=== PATIENT | male | born 1955 | race Hispanic/Latino ===

== ENCOUNTER 2018-10-02 11:18 | Emergency (ER) | payer BC ==
[~2018-10-02] VITALS: Ht 176.5 cm; Wt 80.7 kg
[2018-10-02] MEDS ORDERED: DIAZEPAM 5 MG TAB PO PRN (11:30)
[2018-10-02] MEDS ORDERED: DEXAMETHASONE SOD PHOS 10 MG/1 ML VIAL IM ONE (11:30)
[2018-10-02] MEDS ORDERED: HYDROCODONE/APAP 10MG-325MG TAB PO ONE (11:30)
[2018-10-02] MEDS ORDERED: KETOROLAC TROMETHAMINE 60 MG/2 ML VIAL IM ONE (11:30)
[2018-10-02 13:15] VITALS: BP 134/80
== END 2018-10-02 13:18 | disposition home or self-care (01) ==
LOC: ER 11:18
DX: M54.5 Low back pain (principal); S39.012A Strain of muscle, fascia and tendon of lower back, initial encounter
CPT/HCPCS: 99283; J1100; J1885

== ENCOUNTER 2020-02-08 21:41 | Emergency (ER) | payer BC, MEDICARE ==
[~2020-02-08] VITALS: Ht 175.3 cm; Wt 81.6 kg
[2020-02-08] MEDS ORDERED: ACETAMINOPHEN 325 MG TAB ONE (22:11)
[2020-02-08] MEDS ORDERED: SODIUM CHLORIDE 0.9% 1000ML 1,000 ML IV SCH (22:15)
[2020-02-08] MEDS ORDERED: ACETAMINOPHEN 325 MG TAB PO ONE (22:15)
--- NOTE | 2020-02-08 22:16 | Emergency Department Note ---
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 He has however had this issue before and took some OTC meds which helped but he is unsure as to what they were and he cannot get them anymore. Historian: Patient Arrival Mode: Car Additional Treatment GLOBAL COMPENSATION MANAGER: Probiotics Bradley Linebacker Crewmember Required: No Onset (how long ago): week(s) (3) Location: Bladder Quality: retention Radiation: Reports non-radiation Severity: mild Onset quality: gradual Duration (how long): week(s) Timing of current episode: constant Progression: worsening Chronicity: recurrent Context: Denies recent illness Relieving factors: none Exacerbating factors: none Associated symptoms: Reports denies other symptoms Past Medical/Family History Physician Review I have reviewed the patient's past medical and family history. Any updates have been documented here. Past Medical History Recent Fever: Yes Clinical Suspicion of Infectio: Yes New/Unexplained Change in Ment: No Past Medical History: None Past Surgical History: None Other Surgery: LUE sx Other Last Tetanus: Unknown Review of Systems Review of Systems Constitutional: Reports no symptoms EENTM: Reports no symptoms Cardiovascular: Reports no symptoms Respiratory: Reports no symptoms Gastrointestinal: Reports no symptoms Genitourinary: Reports as per HPI, Reports frequency, Reports other (Urinary retention); Denies discharge, Denies dysuria, Denies hematuria, Denies pain Musculoskeletal: Reports no symptoms Integumentary: Reports no symptoms Neurological: Reports no symptoms Psychological: Reports no symptoms Endocrine: Reports no symptoms Hematological/Lymphatic: Reports no symptoms Physical Exam Related Data Allergies: Coded Allergies: peanut (Verified Allergy, Severe, 02/08/20) Penicillins (Verified Allergy, Intermediate, tongue swelling, 10/02/18) ciprofloxacin (Verified Allergy, Intermediate, tongue swelling, 10/02/18) Triage Vital Signs Vital Signs Date Time Temp Pulse Resp B/P (MAP) Pulse Ox O2 Delivery O2 Flow Rate FiO2 02/08/20 22:02 100.8 114 20 Room Air Vital signs reviewed: Yes Physical Exam CONSTITUTIONAL Constitutional: Present well-developed, Present well-nourished HENT HENT: Present normocephalic, Present atraumatic, Present oropharynx clear/moist, Present nose normal HENT L/R: Present left ext ear normal, Present right ext ear normal EYES Eyes: Reports PERRL, Reports conjunctivae normal NECK Neck: Present ROM normal PULMONARY Pulmonary: Present effort normal, Present breath sounds normal CARDIOVASCULAR Cardiovascular: Present regular rhythm, Present heart sounds normal, Present capillary refill normal, Present tachycardia GASTROINTESTINAL Abdominal: Present soft, Present nontender, Present bowel sounds normal GENITOURINARY Genitourinary: Present exam deferred SKIN Skin: Present warm, Present dry MUSCULOSKELETAL Musculoskeletal: Present ROM normal NEUROLOGICAL Neurological: Present alert, Present oriented x 3, Present no gross motor or sensory deficits PSYCHOLOGICAL Psychological: Present mood/affect normal, Present judgement normal Results Laboratory Laboratory Laboratory Tests Test 02/08/20 22:00 Assessment & Plan Medical Decision Making MDM 64-year-old male who is otherwise healthy presents for urinary retention. He states he is able to urinate some but feels like he does not empty his bladder completely. He has had this issue in the past taken [id number] medications but is unable to take this as he cannot find these anymore. He is unsure as to what these were. He isn't taking his 's probiotics which have not helped. He denies burning with urination, hematuria or any other concerns. He did have a fever at initial presentation and was mildly tachycardic, both of which resolved with fluids and Tylenol. Bladder scan shows 200mL in bladder and then patient was able to void much of this. Urinalysis and labs show no kidney dysfunction or other abnormalities. Doubt emergent process at this time. I discussed results patient as well as expected disease time course and management. They will follow up with their primary care provider or return to the emergency department for new or worsening symptoms. Patient's appropriate for discharge. Will rx Flomax and referred to Urology. Part of this note was dictated with Violet and is subject to recognition errors. Reassessment Reassessment time: 22:14 Reassessment Well appearing, NAD Assessment & Plan Final Impression: (1) Urinary retention Depart Disposition: HOME, SELF-CARE Last Vital Signs Date Time Temp Pulse Resp B/P (MAP) Pulse Ox O2 Delivery O2 Flow Rate FiO2 02/08/20 22:02 100.8 114 20 Room Air Medications in the ED Acetaminophen 650 mg STK-MED ONCE .ROUTE ; Start 02/08/20 at 22:11; Stop 02/08/20 at 22:05; Status DC Acetaminophen 650 mg ONCE ONCE PO Last administered on 02/08/20at 22:05; Admin Dose 650 MG; Start 02/08/20 at 22:15; Stop 02/08/20 at 22:16; Status UNV ANGELES DELGADILLO MD Feb 08, 2020 22:16
--- NOTE | 2020-02-08 22:19 | NUR ---
bladder scan performed, 167 ml measured, Dr. Workman notified
[2020-02-08 22:24] LABS: BILIRUBIN,URINE NEGATIVE (NEGATIVE); CLARITY,URINE HAZY (CLEAR); COLOR,URINE YELLOW (YELLOW); KETONES,URINE NEGATIVE (NEGATIVE); LEUKOCYTE ESTERASE ,URINE NEGATIVE (NEGATIVE); NITRITE,URINE NEGATIVE (NEGATIVE); PROTEIN,URINE DIPSTICK NEGATIVE (NEGATIVE); URINE UROBILINOGEN 0.2 mg/dL (0.2 - 1)
[2020-02-08 22:26] LABS: BACTERIA,URINE FEW /HPF; RBC,URINE 0-5 /HPF (0-5); WBC,URINE (MAN) 0-5 /HPF (0-5)
[2020-02-08 22:26] LABS: BASOPHILS % 0.4 % (0.0-1.0); EOSINOPHILS # (AUTO) 0.1 (0.0-0.4); EOSINOPHILS % 0.6 % (0.0-6.0); HEMATOCRIT 42.6 % (38.2-49.6); HEMOGLOBIN 14.2 g/dL (14.0-18.0); LYMPHOCYTES # (AUTO) 1.2 (1.0-3.2); LYMPHOCYTES % 11.6 % (18.0-39.1); MEAN CORPUSCULAR HEMOGLOBIN 28.4 pg (28-32); MEAN CORPUSCULAR HGB CONC 33.3 g/dL (31-35); MEAN CORPUSCULAR VOLUME 85.2 fL (81-99); MONOCYTES # (AUTO) 0.8 (0.2-0.8); MONOCYTES % 8.1 % (4.4-11.3); NEUTROPHILS # (AUTO) 8.1 (2.1-6.9); NEUTROPHILS % 78.8 % (38.7-80.0); PLATELET COUNT 221 x10e3/uL (140-360); RED CELL DISTRIBUTION WIDTH 13.4 % (11.7-14.4)
[2020-02-08 22:27] LABS: EPITHELIAL CELLS,URINE FEW /LPF
[2020-02-08 22:42] LABS: ALANINE AMINOTRANSFERASE 25 IU/L (0-55); ALBUMIN 3.9 g/dL (3.5-5.0); ALBUMIN/GLOBULIN RATIO 1.1 (0.8-2.0); ALKALINE PHOSPHATASE 69 IU/L (40-150); ANION GAP 14.8 mmol/L (8-16); BLOOD UREA NITROGEN 15 mg/dL (7-26); BUN/CREATININE RATIO 15 (6-25); CALCIUM 9.4 mg/dL (8.4-10.2); CARBON DIOXIDE 22 mmol/L (22-29); CHLORIDE 105 mmol/L (98-107); CREATININE, SERUM 1.02 mg/dL (0.72-1.25); EST GLOMERULAR FILTRATION RATE > 60 ML/MIN (60-); GLUCOSE 130 mg/dL (74-118); POTASSIUM 3.8 mmol/L (3.5-5.1); SODIUM 138 mmol/L (136-145)
--- OUTSIDE RECORDS SUMMARY | 2020-02-08 22:48 | XMS REPORT | Summary of Care ---
Author Organization Unknown Address Unknown Phone Unavailable Encounter HQ Encntr_alimagdaleno(AMANDA) [id number] Date(s): 11/24/14 - 11/24/14 [facility] Outpatient Imaging - [id number] [place] [address] [phone] Discharge Disposition: Home Physician Attending: Chris Holt MD Vital Signs No data available for this section Problem List No data available for this section Allergies, Adverse Reactions, Alerts Substance Reaction Severity Status Amoxil Active ciprofloxacin Active Medications No data available for this section Results No data available for this section Immunizations No data available for this section Procedures No data available for this section Social History No data available for this section Assessment and Plan No data available for this section
--- OUTSIDE RECORDS SUMMARY | 2020-02-08 22:48 | XMS REPORT | Summary of Care ---
Author Author [facility] Outpatient Imaging - [facility] Organization [facility] Address Unknown Phone Unavailable Encounter HQ Encntr_alimagdaleno(FIN) [id number] Date(s): 07/21/15 - 07/21/15 [facility] Outpatient Imaging - [id number] [place] [address] [phone] Discharge Disposition: Home Attending Physician: Chris Holt MD Vital Signs No data [...]
--- OUTSIDE RECORDS SUMMARY | 2020-02-08 22:48 | XMS REPORT | Continuity of Care Document ---
Author Author [facility] Organization [facility] Address [address] [place] [address] [address] [place] [address] Phone Unavailable Care Team Providers Care Technical Delivery Manager Name Role Phone NO, PCP PCP Unavailable Carissa Goins Attphys Fredy Holt Attphys Payers Payer Name Policy Type Policy Number Effective Date Expiration Date S cy[place] [employer] [facility] [id number] Joint venture between [facility] Problems Condition Name Condition Details Condition Category Status Onset Date Resolution Date Last Treatment Date Treating Clinician Comments Source M25.561 - PAIN IN RIGHT KNEE M 25.561 - PAIN IN RIGHT KNEE Active 07/21/2015 [facility] [place] [facility] Active 2015-07-21 00:0 1:00 2015-07-21 15:57:00 [facility] 719.46 - JOINT PAIN-L/LE 719. 46 - JOINT PAIN-L/LE Active 11/24/2014 [facility] [place] Diagnosis Active 2014-11-24 00:01:00 2015-01-07 15:11:00 [facility] BACK PAIN/KIDNEY BACK PAIN/KIDNEY Active 02/25/2012 [facility] Active 2012-02-25 00:00:00 2012-02-25 14:56:00 [facility] Allergies, Adverse Reactions, Alerts Allergy Name Allergy Type Status Severity Reaction(s) Onset Date Inacti ve Date Treating Clinician Comments Source Penicillin Allergy to Substance Active Moderate tongue swelling 2018-10-02 00:00:00 [facility] Amoxil Amoxil Active [facility] ciprofloxacin ciprofloxacin Active [facility] Social History Social Habit Start Date Stop Date Quantity Comments Source Social History 2018-11-09 04:59:00 2018-11-09 04:59:00 [facility] Medications Ordered Medication Name Filled Medication Name Start Date Stop Da te Current Medication? Ordering Clinician Indication Dosage Frequency Signature (SIG) Comments Components Source Flexeril 5 mg oral tablet 2012-02-25 20:52:13 Yes Isolde Sasam Aguhar 5 mg, 1 tab, PO, TID, 21 tab, Substitution Allowed, TAB [facility] Ultram 50 mg oral tablet 2012-02-25 20:52:11 Yes Isolde Sasam Aguhar 50 mg, 1 tab, PO, Q4H, PRN, 20 tab, pain, Substitution Allowed [facility] [place] 5/325 oral tablet 2012-02-25 20:49:00 No Isolde S asam Aguhar 1 tab, Route: PO, Drug Form: TAB, kg, ONCE, Start date: 02/25/12 15:49:00, Stop date: 02/25/12 15:49:00 [facility] Vital Signs Vital Name Observation Time Observation Value Comments Source Height 2012-02-25 18:17:00 175.26 cm [facility] Weight 2012-02-25 18:17:00 [facility] Procedures This patient has no known procedures. Encounters Start Date/Time End Date/Time [facility] ID Source 2018-11-08 11:40:00 2018-11-08 23:59:00 Outpatient Josias Goins [facility] [id number] 2018-10-02 11:18:00 2018-10-02 13:18:00 Departed Emergency Room [facility] [id number] [facility] 2015-07-21 15:47:00 2015-07-21 23:59:00 Outpatient Danuta Holt [facility] [id number] 2014-11-24 11:41:00 2014-11-24 23:59:00 Outpatient Chris Holt [facility] [id number] Results Test Description Test Time Test Comments Results Result Comments Source URINALYSIS 2012-02-25 18:22:00 Occasional /HPF *NA*(2011 13:22:00) [facility] URINALYSIS 2012-02-25 18:22:00 Many /LPF *ABN*(02/25/2012 13:22:00) [facility] URINALYSIS 2012-02-25 18:22:00 [facility] 2012-02-25 18:22:00 <1 [facility] 2012-02-25 18:22:00 Yellow *NA*(02/25/2012 13:2 2:00) [facility] 2012-02-25 18:22:00 Occasional /LPF *NA*(2011 13:22:00) [facility] URIN[facility] 2012-02-25 18:22:00 Slight *ABN*(02/25/2012 13: 22:00) [facility] URINALYSIS 2012-02-25 18:22:00 Negative mg/dL *NA*( 13:22:00) [facility] URIN[facility]YSIS 2012-02-25 18:22:00 5.0 [facility]IN[facility] 2012-02-25 18:22:00 Negative mg/dL (02/25/2012 13:22:00) [facility] URIN[facility]YSIS 2012-02-25 18:22:00 Negative mg/dL *NA*( 13:22:00) [facility] URINALYSIS 2012-02-25 18:22:00 Negative (02/25/2012 13:22: 00) [facility] URINALYSIS 2012-02-25 18:22:00 1.026 [facility] URIN[facility]IS 2012-02-25 18:22:00 Negative *NA*(02/25/2012 13 :22:00) [facility] URINALYSIS 2012-02-25 18:22:00 Negative (02/25/2012 13:22: 00) [facility] URINALYSIS 2012-02-25 18:22:00 Negative (02/25/2012 13:22: 00) [facility]
--- OUTSIDE RECORDS SUMMARY | 2020-02-08 22:48 | XMS REPORT | Summary of Care ---
Author Author [facility] Outpatient Imaging - [facility] Organization [facility] Outpatient Imaging - [facility] Address Unknown Phone Unavailable Encounter HQ Encntr_jordi(FIN) [id number] Date(s): 11/08/18 - 11/08/18 [facility] Outpatient Imaging - [address] [phone] Discharge Disposition: Home or Self Care Attending Physician: Josias Goins MD Referring Physician: Josias Goins MD Vital Signs No data available for this section Problem List No data available for this section Allergies, Adverse Reactions, Alerts Substance Reaction Severity Status ciprofloxacin Active Amoxil Active Medications No data available for this section Results No data available for this section Immunizations No data available for this section Procedures No data available for this section Social History No data available for this section Assessment and Plan No data available for this section
--- OUTSIDE RECORDS SUMMARY | 2020-02-08 22:48 | XMS REPORT | CCD ---
Author Author Auto Generated, DAVIN Organization [facility] Address Unknown Phone Unavailable Care Team Providers Care Law Examiner Name Role Phone Bret Krishnan CP Unavailable Allergies, Adverse Reactions, Alerts Substance Reaction Status Amoxil Active ciprofloxacin Active Medications Medication Instructions Start Date End Date Status Ultram 50 mg oral 50 mg, 1 tab, PO, Q4H, PRN, 20 tab, 012 Ordered tablet pain, Substitution Allowed Flexeril 5 mg oral 5 mg, 1 tab, PO, TID, 21 tab, 02/25/2012 Ordered tablet Substitution Allowed, TAB [place] 5/325 oral 1 tab, Route: PO, Drug Form: TAB, 02/25/2012 02/25/2012 Completed tablet kg, ONCE, Start date: 02/24 15:49:00, Stop date: 02/25/12 15:49:00 Vital Signs Most recent to oldest [Reference Range]: 1 Height 175.26 cm (02/25/2012 13:17:00) Weight 80.909 kg (02/25/2012 13:17:00) Results URINALYSIS Most recent to oldest [Reference Range]: 1 UA Turbidity [Clear] Slight *ABN* (02/25/2012 13:22:00) UA Color [Yellow] Yellow *NA* (02/25/2012 13:22:00) UA pH [5.0-8.0] 5.0 (02/25/2012 13:22:00) UA Spec Grav [<=1.030] 1.026 (02/25/2012 13:22:00) UA Glucose [Negative mg/dL] Negative mg/dL *NA* (02/25/2012 13:22:00) UA Blood [Negative] Negative (02/25/2012 13:22:00) UA Ketones [Negative mg/dL] Negative mg/dL *NA* (02/25/2012 13:22:00) UA Protein [Negative mg/dL] Negative mg/dL (02/25/2012 13:22:00) UA Urobilinogen [0.1-1.0 mg/dL] <=1.0 mg/dL *NA* (02/25/2012 13:22:00) UA Bili [Negative] Negative *NA* (02/25/2012 13:22:00) UA Leuk Est [Negative] Negative (02/25/2012 13:22:00) UA Nitrite [Negative] Negative (02/25/2012 13:22:00) UA WBC [0-5 /HPF] <1 /HPF (02/25/2012 13:22:00) UA RBC [0-2 /HPF] 1 /HPF (02/25/2012 13:22:00) UA Bacteria [None Seen /HPF] Occasional /HPF *NA* (02/25/2012 13:22:00) UA Sq Epi [Few /LPF] Occasional /LPF *NA* (02/25/2012 13:22:00) UA Mucus [None Seen /LPF] Many /LPF *ABN* (02/25/2012 13:22:00)
--- OUTSIDE RECORDS SUMMARY | 2020-02-08 22:48 | XMS REPORT | Continuity of Care Document ---
Author Author [employer] Organization [employer] Address Unknown Phone Unavailable Care Team Providers Care Betting Clerk Name Role Phone [facility] [employer] [facility] Unavailable Un available Problems Problem Status Onset Date Classification Date Reported Comments Source M25.561 - PAIN IN RIGHT KNEE [facility] [place] 719.46 - JOINT PAIN-L/LE Active 11/24/2014 [facility] [place] BACK PAIN/KIDNEY Active 02/25/2012 [facility] Medications Medication Details Route Status Patient Instructions Ordering Provider Order Date Source Flexeril 5 mg oral tablet 5 mg , 1 tab, PO, TID, 21 tab, Substitution Allowed, TAB PO Active Aguhar 02/25/2012 [facility] Ultram 50 mg oral tablet 50 mg , 1 tab, PO, Q4H, PRN, 20 tab, pain, Substitution Allowed PO Active Aguh ar 02/25/2012 [facility] [place] 5/325 oral tablet 1 tab, Route: PO, Drug Form: TAB, kg, ONCE, Start date: 02/25/12 15:49:00, Stop date: 02/25/12 15:49:00 PO No Longer Active Aguhar 06/2011 [facility] Allergies, Adverse Reactions, Alerts Substance Category Reaction Severity Reaction type Status Date Reported Comments Source Amoxil Assertion Drug allergy Active [facility] [place] ciprofloxacin Assertion Drug allergy Active [facility] [place] Immunizations No Data Provided for This Section Results Order Name Results Value Reference Range Date Interpretation Comments Source URINALYSIS UA Bacteria Occas ional /HPF *NA* (02/25/2012 13:22:00) None S een 02/25/2012 NA [facility] URINALYSIS UA Mucus Many /LPF *ABN* (02/25/2012 13:22:00) None S een 02/25/2012 ABN [facility] URINALYSIS UA RBC 1 0 - 2 02/25/2012 Normal [facility] URINALYSIS UA Urobilinogen 0.1 - 1.0 02/25/2012 NA [facility] URINALYSIS UA WBC <1 0 - 5 02/25/2012 Normal [facility] URINALYSIS UA Color Yello w *NA* (02/25/2012 13:22:00) Yellow 02/25/2012 [facility] URINALYSIS UA Sq Epi Occas ional /LPF *NA* (02/25/2012 13:22:00) Few 02/25/2012 NA [facility] URINALYSIS UA Turbidity Sligh t *ABN* (02/25/2012 13:22:00) Clear 02/25/2012 ABN [facility] URINALYSIS UA Ketones Negat erick mg/dL *NA* (02/25/2012 13:22:00) Negati ve 02/25/2012 [facility] URINALYSIS UA pH 5.0 5.0 - 8.0 02/25/2012 Normal [facility] URINALYSIS UA Protein Negat erick mg/dL (02/25/2012 13:22:00) Negati ve 02/25/2012 Normal [facility] URINALYSIS UA Glucose Negat erick mg/dL *NA* (02/25/2012 13:22:00) Negati ve 02/25/2012 NA [facility] URINALYSIS UA Nitrite Negat erick (02/25/2012 13:22:00) Negati ve 02/25/2012 Normal [facility] URINALYSIS UA Spec Grav 1.026 <=1.030 02/25/2012 Normal [facility] URINALYSIS UA Bili Negat erick *NA* (02/25/2012 13:22:00) Negati ve 02/25/2012 NA [facility] URINALYSIS UA Blood Negat erick (02/25/2012 13:22:00) Negati ve 02/25/2012 Normal [facility] URINALYSIS UA Leuk Est Negat erick (02/25/2012 13:22:00) Negati ve 02/25/2012 Normal [facility] Pathology Reports No Data Provided for This Section Diagnostic Reports Report Value Date Source Chest 2 views DX HISTORY: - Z20.1 Contact with and (suspected) exposure to tuberculosis TECHNIQUE: PA and lateral views of the chest. COMPARISON: None available. FINDINGS: The lungs are well-inflated and clear. The cardiomediastinal silhouette and pulmonary vasculature are within normal limits. IMPRESSION: No radiographic evidence of acute cardiopulmonary disease. [phone] 11/08/2018 [facility] [place] Knee 1-2 Views unilateral DX R ight knee x-ray 2 views Clinical History: 60-year-old with knee pain. Comparison: None. The patellofemoral knee joint space is mild narrowed suggesting early osteoarthritis. Other knee joint spaces are normal. No acute fracture or loose body is seen. No abnormal joint effusion identified. Normal mineralization is seen. Impression: Mild narrowing of patellofemoral space suggests cartilage loss and early osteoarthritis. 07/21/2015 [facility] [place] Knee 1-2 Views Bilateral DX Ex am: Right and left knee x- rays, 2 views each Reason for Exam: Bilateral knee pain Comparison Exam: None Discussion: Right: No acute bony abnormalities. Joint spaces are preserved. No suspicious osteoblastic or osteolytic lesions. Left: No acute bony abnormalities. Joint spaces are preserved. No suspicious osteoblastic or osteolytic lesions. Impression: 1. Unremarkable x-rays of the right and left knees 11/24/2014 [facility] [place] Consultation Notes No Data Provided for This Section Discharge Summaries No Data Provided for This Section History and Physicals No Data Provided for This Section Vital Signs Vital Sign Value Date Comments Source Height 175.26 cm 02/25/2012 [facility] Weight 80.909 02/25/2012 [facility] Encounters Location Location Details Encounter Type Encounter Number Reason For Visit Attending Provider ADM Date DC Date Status Source [facility] Emergency [id number] ROMÁN BRONWYN 02/25/2012 02/25/2012 Discharged [facility] Outpatient Imaging - [place] [facility] [id number] Chris Holt 11/24/2014 11/25/2014 [facility] [place] [facility] Outpatient Imaging - [place] [facility] [id number] Chris Holt 07/21/2015 07/22/2015 [facility] [place] [facility] Outpatient Imaging - [place] [facility] [id number] uBster 11/08/2018 11/09/2018 [facility] [place] Procedures No Data Provided for This Section Assessment and Plan No Data Provided for This Section Plan of Care No Data Provided for This Section Social History Social History Date Source No data available for this section 11/09/2018 [facility] [place] Family History No Data Provided for This Section Advance Directives No Data Provided for This Section Functional Status No Data Provided for This Section
[2020-02-08] MEDS ORDERED: FLOMAX0.4 MG PO (22:53)
[2020-02-08 22:59] VITALS: BP 132/80
[2020-02-09] MEDS ORDERED: CIPRO500 MG PO (18:07)
[2020-02-09] MEDS ORDERED: MACROBID 100 M100 MG PO (18:17)
== END 2020-02-08 23:01 | disposition home or self-care (01) ==
LOC: ER 21:44
DX: R33.9 Retention of urine, unspecified (principal)
CPT/HCPCS: 36415; 80053; 81001; 85025; 87086; 99283; J7030

== ENCOUNTER 2020-02-09 15:29 | Emergency (ER) | payer BC, MEDICARE ==
[~2020-02-09] VITALS: Ht 175.3 cm; Wt 81.6 kg
[~2020-02-09 15:29] MED LIST: FLOMAX0.4 MG PO
--- OUTSIDE RECORDS SUMMARY | 2020-02-09 16:52 | XMS REPORT | Continuity of Care Document ---
Author Author [facility] Organization [facility] Address Unknown Phone Unavailable Care Team Providers Care Property Administrator Name Role Phone [facility] [employer] Information [employer] Unavailable Un available Problems Problem Status Onset Date Classification Date Reported Comments Source M25.561 - PAIN IN RIGHT KNEE A ct[facility]21[facility] 719.46 - JOINT PAIN-L/LE Active 11/24/2014 [facility] BACK PAIN/KIDNEY Active 02/25/2012 [facility] Medications Medication Details Route Status Patient Instructions Ordering Provider Order Date Source Flexeril 5 mg oral tablet 5 mg , 1 tab, PO, TID, 21 tab, Substitution Allowed, TAB PO Active Aguhar 02/25/2012 [facility] Ultram 50 mg oral tablet 50 mg , 1 tab, PO, Q4H, PRN, 20 tab, pain, Substitution Allowed PO Active Aguh ar 02/25/2012 [facility] Radom 5/325 oral tablet 1 tab, Route: PO, Drug Form: TAB, kg, ONCE, Start date: 02/25/12 15:49:00, Stop date: 02/25/12 15:49:00 PO No Longer Active Aguhar 06/2011 [facility] Allergies, Adverse Reactions, Alerts Substance Category Reaction Severity Reaction type Status Date Reported Comments Source Amoxil Assertion Drug allergy Active [facility] ciprofloxacin Assertion Drug allergy Active [facility] Immunizations No Data Provided for This Section Results Order Name Results Value Reference Range Date Interpretation Comments Source URINALYSIS UA Bacteria Occas ional /HPF *NA* (02/25/2012 13:22:00) None S een 02/25/2012 NA [facility] URINALYSIS UA Mucus Many /LPF *ABN* (02/25/2012 13:22:00) None S een 02/25/2012 ABN [facility] URINALYSIS UA RBC 1 0 - 2 02/25/2012 Normal [facility] URINALYSIS UA Urobilinogen 0.1 - 1.0 02/25/2012 NA [facility] URINALYSIS UA WBC <1 0 - 5 02/25/2012 Normal [facility] URINALYSIS UA Color Yello w *NA* (02/25/2012 13:22:00) Yellow 02/25/2012 [facility] URINALYSIS UA Sq Epi Occas ional /LPF *NA* (02/25/2012 13:22:00) Few 02/25/2012 NA [facility] URINALYSIS UA Turbidity Sligh t *ABN* (02/25/2012 13:22:00) Clear 02/25/2012 ABN [facility] URINALYSIS UA Ketones Negat erick mg/dL *NA* (02/25/2012 13:22:00) Negati ve 02/25/2012 [facility] URINALYSIS UA pH 5.0 5.0 - 8.0 02/25/2012 Normal [facility] URINALYSIS UA Protein Negat erick mg/dL (02/25/2012 13:22:00) Negati ve 02/25/2012 Normal [facility] URINALYSIS UA Glucose Negat erick mg/dL *NA* (02/25/2012 13:22:00) Negati ve 02/25/2012 NA [facility] URINALYSIS UA Nitrite Negat erick (02/25/2012 13:22:00) Negati ve 02/25/2012 Normal [facility] URINALYSIS UA Spec Grav 1.026 <=1.030 02/25/2012 Normal [facility] URINALYSIS UA Bili Negat erick *NA* (02/25/2012 13:22:00) Negati ve 02/25/2012 NA [facility] URINALYSIS UA Blood Negat erick (02/25/2012 13:22:00) Negati ve 02/25/2012 Normal [facility] URINALYSIS UA Leuk Est Negat erick (02/25/2012 13:22:00) Negati ve 02/25/2012 Normal [facility] Pathology Reports No Data Provided for This [...] of acute cardiopulmonary disease. [phone] 11/08/2018 [facility] Knee 1-2 Views unilateral DX R ight [...] cartilage loss and early osteoarthritis. 07/21/2015 [facility] Knee 1-2 Views Bilateral DX Ex am: [...] the right and left knees 11/24/2014 [facility] Consultation Notes No Data Provided for This Section Discharge Summaries No Data Provided for This Section History and Physicals No Data Provided for This Section Vital Signs Vital Sign Value Date Comments Source Height 175.26 cm 02/25/2012 [facility] Weight 80.909 02/25/2012 [facility] Encounters Location Location Details Encounter Type Encounter Number Reason For Visit Attending Provider ADM Date DC Date Status Source [facility] Emergency [id number] ROMÁN BRONWYN 02/25/2012 02/25/2012 Discharged [facility] [id number] 00 Chris Holt 11/24/2014 11/25/2014 [facility] [id number] Chris Holt 07/21/2015 07/22/2015 [facility] [id number] Buster 11/08/2018 11/09/2018 [facility] Procedures No Data Provided for This Section Assessment and Plan No Data Provided for This Section Plan of Care No Data Provided for This Section Social History Social History Date Source No data available for this section 11/09/2018 [facility] Family History No Data Provided for This Section Advance Directives No Data Provided for This Section Functional Status No Data Provided for This Section
--- OUTSIDE RECORDS SUMMARY | 2020-02-09 16:52 | XMS REPORT | Continuity of Care Document ---
Author Author [facility] t Organization [facility] Address [address] [place] [address] [address] [place] [address] Phone Unavailable Care Team Providers Care Artist Woodblock Name Role Phone NO, PCP PCP Unavailable Carissa Goins Attphys Fredy Holt Attphys Payers Payer Name Policy Type Policy Number Effective Date Expiration Date S [place] [employer] [facility] [id number] [facility] Problems Condition Name Condition Details Condition Category Status Onset Date Resolution Date Last Treatment Date Treating Clinician Comments Source M25.561 - PAIN IN RIGHT KNEE M 25.561 - PAIN IN RIGHT KNEE Active 07/21/2015 [facility] Diagnosis Active 2015-07-21 00:0 1:00 2015-07-21 15:57:00 [facility] 719.46 - JOINT PAIN-L/LE 719. 46 - JOINT PAIN-L/LE Active 11/24/2014 [facility] Active 2014-11-24 00:01:00 2015-01-07 15:11:00 [facility]ID[facility] BACK PAIN/KIDNEY Active 02/25/2012 [facility] Active 2012-02-25 00:00:00 2012-02-25 14:56:00 [facility] Allergies, Adverse Reactions, Alerts Allergy Name Allergy Type Status Severity Reaction(s) Onset Date Inacti ve Date Treating Clinician Comments Source Penicillin Allergy to Substance Active Moderate tongue swelling 2018-10-02 00:00:00 [facility] Amoxil Amoxil Active [facility] ciprofloxacin ciprofloxacin Active [facility] Social History Social Habit Start Date Stop Date Quantity Comments Source Social History 2018-11-09 04:59:00 2018-11-09 04:59:00 [facility] Medications Ordered Medication Name Filled Medication Name Start Date Stop Da te Current Medication? Ordering Clinician Indication Dosage Frequency Signature (SIG) Comments Components Source Flexeril 5 mg oral tablet 2012-02-25 20:52:13 Yes Isolde Sasam Aguhar 5 mg, 1 tab, PO, TID, 21 tab, Substitution Allowed, TAB [facility] Ultram 50 mg oral tablet 2012-02-25 20:52:11 Yes Isolde Sasam Aguhar 50 mg, 1 tab, PO, Q4H, PRN, 20 tab, pain, Substitution Allowed [facility] [place] 5/325 oral tablet 2012-02-25 20:49:00 No Isolde S asam Aguhar 1 tab, Route: PO, Drug Form: TAB, kg, ONCE, Start date: 02/25/12 15:49:00, Stop date: 02/25/12 15:49:00 [facility] Vital Signs Vital Name Observation Time Observation Value Comments Source Height 2012-02-25 18:17:00 175.26 cm [facility] Weight 2012-02-25 18:17:00 [facility] Procedures This patient has no known procedures. Encounters Start Date/Time End Date/Time [facility] Type [facility] ID Source 2018-11-08 11:40:00 2018-11-08 23:59:00 Outpatient Josias Goins [facility] [id number] 2018-10-02 11:18:00 2018-10-02 13:18:00 Departed Emergency Room [facility] [id number] [facility] 2015-07-21 15:47:00 2015-07-21 23:59:00 Outpatient Danuta Holt [facility] [id number] 2014-11-24 11:41:00 2014-11-24 23:59:00 Outpatient Chris Holt [facility] [id number] Results Test Description Test Time Test Comments Results Result Comments Source URINALYSIS 2012-02-25 18:22:00 Occasional /HPF *NA*(2011 13:22:00) [facility] 2012-02-25 18:22:00 Many /LPF *ABN*(02/25/2012 13:22:00) [facility] URINALYSIS 2012-02-25 18:22:00 [facility] [place] UR[facility]ALYSIS 2012-02-25 18:22:00 <1 [facility] [place] URINALYSIS 2012-02-25 18:22:00 Yellow *NA*(02/25/2012 13:2 2:00) [facility] URIN[facility]IS 2012-02-25 18:22:00 Occasional /LPF *NA*(2011 13:22:00) [facility] URINALYSIS 2012-02-25 18:22:00 Slight *ABN*(02/25/2012 13: 22:00) [facility] URINALYSIS 2012-02-25 18:22:00 Negative mg/dL *NA*( 13:22:00) [facility] [place] URINALYSIS 2012-02-25 18:22:00 5.0 [facility] [place] URINALYSIS 2012-02-25 18:22:00 Negative mg/dL (02/25/2012 13:22:00) [facility] URINALYSIS 2012-02-25 18:22:00 Negative mg/dL *NA*( 13:22:00) [facility] URINALYSIS 2012-02-25 18:22:00 Negative (02/25/2012 13:22: 00) [facility] URINALYSIS 2012-02-25 18:22:00 1.026 [facility] URIN[facility]IS 2012-02-25 18:22:00 Negative *NA*(02/25/2012 13 :22:00) [facility] [place] URINALYSIS 2012-02-25 18:22:00 Negative (02/25/2012 13:22: 00) [facility] URINALYSIS 2012-02-25 18:22:00 Negative (02/25/2012 13:22: 00) [facility]
[2020-02-09] MEDS ORDERED: CIPROFLOXACIN 500 MG TAB PO SCH (17:00)
--- NOTE | 2020-02-09 17:16 | NUR ---
son placed as order for urinary retention. 700 cc of clear yellow uring drained into bag. pt states he feels much better. Dr Hampton aware. son left in place and leg bag attached. pt tolorated well.
--- NOTE | 2020-02-09 18:00 | NUR ---
LEG BAG ATTACHED
--- NOTE | 2020-02-09 18:04 | Emergency Department Note ---
History of Present Illnes History of Present Illness Chief Complaint: Abdominal Complaints History of Present Illness This is a 64 year old male, with no significant past medical history, who presents with a three-day history of urinary frequency, hesitancy, dribbling with urination, and dysuria. He is also complaining of some lower abdominal "discomfort, and fullness." He denies any fever, chills, nausea, or vomiting. He denies constipation or difficulty having bowel movements. He is having some issues with hemorrhoids, due to sitting on the commode while attempting to void for prolonged periods of time. He was seen and evaluated at [facility] last night, and he did have a temp of 100.8. He received some IV fluids,and was prescribed Flomax, which he started this morning. He presents this afternoon due to worsening symptoms and inability to sleep, due to the urinary frequency. Patient has no known history of BPH, although it doesn't sound like he has routine health checkups. He cannot recall ever having a PSA drawn, and he has not been seen by urologist. He denies any family history of prostate cancer. Patient works as a reefer truck driver, and drinks little water, and rarely stops for bathroom breakes. He states that he often holds his urine, longer than he knows that he should. Historian: Patient Arrival Mode: Car Diabetes Educator Required: No Onset (how long ago): day(s) (4) Location: bladder Quality: see HPI Radiation: Reports non-radiation Severity: moderate, severe Onset quality: gradual Duration (how long): day(s) (4) Timing of current episode: constant Progression: worsening Chronicity: new Context: Denies recent illness, Denies recent surgery, Denies trauma/injury Relieving factors: none Exacerbating factors: none Associated symptoms: Reports fever/chills (low grade temp in ER last night); Denies confusion, Denies chest pain, Denies cough, Denies headaches, Denies nausea/vomiting, Denies shortness of breath Treatments prior to arrival: other (started Flomax 0.4 mg today;) Risk factors: age, reefer truck driver and holds urine Past Medical/Family History Physician Review I have reviewed the patient's past medical and family history. Any updates have been documented here. Past Medical History Recent Fever: No Clinical Suspicion of Infectio: No New/Unexplained Change in Ment: No Past Medical History: None Past Surgical History: None Other Surgery: LUE sx Social History Smoking Cessation: Never Smoker Counseling Performed: No Alcohol Use: Occasional Any Illegal Drug Use: No TB Exposure/Symptoms: No Physically hurt or threatened: No Family History Family history of heart diseas: No Other Last Tetanus: Unknown Any Pre-Existing Lines (PICC,: No Is patient up to date on immun: No Review of Systems Review of Systems Constitutional: Reports fever; Denies chills, Denies malaise EENTM: Reports no symptoms Cardiovascular: Reports no symptoms Respiratory: Reports no symptoms Gastrointestinal: Reports no symptoms, Reports abdominal pain (lower abdomen/suprapubic;); Denies nausea, Denies vomiting Genitourinary: Reports dysuria, Reports frequency, Reports pain; Denies discharge, Denies hematuria Musculoskeletal: Denies back pain, Denies muscle pain, Denies neck pain Integumentary: Denies change in color, Denies rash Neurological: Denies headache Psychological: Reports no symptoms Endocrine: Reports no symptoms Hematological/Lymphatic: Reports no symptoms Review of other systems: All other systems negative Physical Exam Related Data Allergies: Coded Allergies: peanut (Verified Allergy, Severe, 02/08/20) Penicillins (Verified Allergy, Intermediate, tongue swelling, 10/02/18) ciprofloxacin (Verified Allergy, Intermediate, tongue swelling, 10/02/18) Triage Vital Signs Vital Signs Date Time Temp Pulse Resp B/P (MAP) Pulse Ox O2 Delivery O2 Flow Rate FiO2 02/09/20 15:40 99.3 117 18 147/88 96 Vital signs reviewed: Yes Physical Exam CONSTITUTIONAL Constitutional: Present well-developed, Present well-nourished, Present other; Absent distressed (appears uncomfortable, restless) HENT HENT: Present normocephalic, Present atraumatic, Present oropharynx clear/moist, Present nose normal HENT L/R: Present left ext ear normal, Present right ext ear normal EYES Eyes: Reports PERRL, Reports conjunctivae normal NECK Neck: Present ROM normal PULMONARY Pulmonary: Present effort normal, Present breath sounds normal CARDIOVASCULAR Cardiovascular: Present regular rhythm, Present heart sounds normal, Present capillary refill normal, Present normal rate GASTROINTESTINAL Abdominal: Present soft, Present bowel sounds normal, Present distension (mild lower abdominal distension and suprapubic ttp; asked that he), Present tender; Absent guarding, Absent left CVA tenderness GENITOURINARY Genitourinary: Present penis normal (uncircumcised), Present other (testes descended bilaterally, with no masses or tenderness;); Absent penis tenderness SKIN Skin: Present warm, Present dry; Absent rash MUSCULOSKELETAL Musculoskeletal: Present ROM normal; Absent tenderness, Absent swelling NEUROLOGICAL Neurological: Present alert, Present oriented x 3, Present no gross motor or sensory deficits PSYCHOLOGICAL Psychological: Present mood/affect normal, Present judgement normal Results Laboratory Laboratory UA - ket - 15mg/dl, blo - mod, pro-trace, nit - neg; leuk - small; Labs performed at [facility] last night: CBC - nl WBC, no anemia, nl plts; CMP - nl Creatinine, with GFR > 60 ml/min; Lab results reviewed: Yes Assessment & Plan Medical Decision Making MDM - Son catheter placed to gravity, without much difficulty, by Mary Diggs RN, with return of 700 mL of concentrated, yellow urine. There was no visible blood. - Son catheter is to remain in place, until follow-up with Urology. Patient provided with follow-up information with local urologist, Dr. Zhu. - Contact Urology tomorrow for follow-up this week, for further evaluation of urinary retention. - Continue to take Flomax, as directed, and begin Cipro tomorrow morning, and complete the 10 day course, for urinary tract infection. - Increase fluid intake, especially water. 18:15 - patient only listed penicillin as an allergy, when interviewed. A dose of Cipro was ordered and administered. It was then tacked it that there was an allergy of Cipro listed in the computer. Patient states that he's taken Cipro many times and doesn't have any issue with that unless he takes it for 2 weeks, and then his tongue swells. Patient will be observed for at least an hour here in the ED, for symptoms. He's also instructed to take Benadryl immediately if he develops any tongue swelling and to return to the emergency room. He should call 911 if he develops any difficulty breathing. Patient was understanding of the plan. Reassessment Reassessment time: 19:25 Reassessment Pt doing well, with no tongue swelling or adverse reaction to the Cipro. He is advised to take two Benadryl immediately, if he notes any tongue swelling, lip swelling or any signs of an allergic reaction, and call 911 or get to the ER immediately. Pt voiced understanding of the plan, and ambulated out of the ED in NAD, and much more comfortable, since the son catheter has been placed. Assessment & Plan Final Impression: (1) Urinary retention (2) UTI (urinary tract infection) (3) Dysuria Depart Disposition: HOME, SELF-CARE Last Vital Signs Date Time Temp Pulse Resp B/P (MAP) Pulse Ox O2 Delivery O2 Flow Rate FiO2 02/09/20 15:40 99.3 117 18 147/88 96 Home Meds Active Scripts Nitrofurantoin Monohyd/M-Cryst (MACROBID 100 MG CAPSULE) 100 Mg Capsule, 100 MG PO BID for urine infection for 10 Days, #20 TAB 0 Refills Prov:DAYANA LATHAM MD 02/09/20 Tamsulosin Hcl* (FLOMAX*) 0.4 Mg Cap, 0.4 MG PO DAILY, #30 CAP Prov:ANGELES DELGADILLO MD 02/08/20 Discontinued Scripts Ciprofloxacin Hcl (CIPRO) 500 Mg Tablet, 500 MG PO Q12H for urine infection for 10 Days, #20 TAB 0 Refills Prov:DAYANA LATHAM MD 02/09/20 Medications in the ED Ciprofloxacin 500 mg ONCE PO ; Start 02/09/20 at 17:00; Stop 02/16/20 at 16:59; Status UNV DAYANA LATHAM MD Feb 09, 2020 18:03
[2020-02-09] MEDS ORDERED: CIPRO500 MG PO (18:07)
[2020-02-09] MEDS ORDERED: CIPROFLOXACIN 500 MG TAB ONE (18:08)
--- NOTE | 2020-02-09 18:16 | NUR ---
PT STATES HE HAS TAKEN CIPRO MANY TIMES AND IF HE TAKES MORE THAN 2 WEEKS IT MAKES HIS TONGUE SWELL. PT STATES HIS SWELLING OF TONGUE DOES NOT BOTHER HIS BREATHING HE JUST FEELS IT. WHEN HANDING PT MEDICATION HE STATED HE WAS ALLERGIC TO PCN. PT GIVEN CIPRO. THEN STATED HE WAS ALLERGIC TO MED. DR LATHAM AWARE AND P TO BE WATCHED FOR ONE HOUR TO INSURE NO REACTION.
[2020-02-09] MEDS ORDERED: MACROBID 100 M100 MG PO (18:17)
--- NOTE | 2020-02-09 18:53 | NUR ---
REPORT GIVEN TO NEETA VENTURA, NO REACTION NOTED AT THIS TIME.
--- NOTE | 2020-02-09 19:31 | NUR ---
DISCUSSED DC INST/RX/FU CARE. DISCUSSED PT TO RETURN TO ER IF TONGUE STARTS SWELLING WITH PT STATING AGREEMENT. NO SWELLING NOTED. PT AMB OUT STEADY GAIT. NO COMPLAINTS AT THIS TIME
[2020-02-09 19:33] VITALS: BP 140/86
== END 2020-02-09 19:28 | disposition home or self-care (01) ==
LOC: FSED 16:50
DX: R33.9 Retention of urine, unspecified (principal); N39.0 Urinary tract infection, site not specified; R30.0 Dysuria; R50.9 Fever, unspecified; R10.30 Lower abdominal pain, unspecified
CPT/HCPCS: 51700; 81003; 99283